=== PATIENT | female | born 1980 | race Caucasian/White ===

== ENCOUNTER 2018-04-23 04:54 | Emergency (ER) | payer MEDICAID ==
[~2018-04-23] VITALS: Ht 160 cm; Wt 82.1 kg
[2018-04-23 05:06] VITALS: BP 134/63; PULSE 94; RESP 18; Ht 160 cm; Wt 82.1 kg
[2018-04-23] MEDS ORDERED: TRAM50TA2 PO (06:58)
--- NOTE | 2018-04-23 07:02 | ERD ---
ER Documentation Chief Complaint Chief Complaint generalize body pain x 2 months HPI Patient is a 37-year-old female with no medical problems who presents with body wide pain. The patient said that she has had pain in her joints across her body for the past 2 months. She was told that she has "arthritis". She tried ibuprofen but was not getting relief. She had subjective fever as well. She has wrist and ankle pain which is the worst. She denies any falls. She said that she feels like there is inflammation. She does have a primary doctor. She does not have a supervisor enrobing as of yet. ROS All systems reviewed and are negative except as per history of present illness. Medications Home Meds Active Scripts Tramadol HCl (Tramadol HCl) 50 Mg Tablet, 50 MG PO Q6 PRN for PAIN, #10 TAB Prov:CORY MILLIGAN MD 04/23/18 Allergies Allergies: Coded Allergies: No Known Allergy (Verified , 01/09/11) PMhx/Soc Medical and Surgical Hx: pt denies Medical Hx History of Surgery: No Anesthesia Reaction: No Hx Neurological Disorder: No Hx Respiratory Disorders: No Hx Cardiac Disorders: No Hx Psychiatric Problems: No Hx Miscellaneous Medical Probl: No Hx Alcohol Use: No Hx Substance Use: No Hx Tobacco Use: No Smoking Status: Never smoker FmHx Family History: No diabetes Physical Exam Vitals Vital Signs Date Temp Pulse Resp B/P (MAP) Pulse Ox O2 O2 Flow FiO2 Time Delivery Rate 04/23/18 99.4 94 18 134/63 98 05:06 (86) Physical Exam Const: No acute distress Head: Atraumatic Eyes: Normal Conjunctiva ENT: Normal External Ears, Nose and Mouth. Neck: Full range of motion. No meningismus. Resp: Clear to auscultation bilaterally Cardio: Regular rate and rhythm, no murmurs Abd: Soft, non tender, non distended. Normal bowel sounds Skin: No petechiae or rashes Back: No midline or flank tenderness Ext: No cyanosis, or edema Neur: Awake and alert Psych: Normal Mood and Affect Procedures/MDM Patient is a 37-year-old female who presents with body wide pain. I believe she likely has underlying rheumatoid arthritis given her symptoms. The patient will be treated with a short course of tramadol for pain. I do believe that she should follow-up with a supervisor enrobing and I have given her information for Dr. Holloway. She should follow-up within the next 2-3 days. She can return for any worsening symptoms. I doubt serious bacterial infection. Vital signs are normal and she is afebrile in the emergency department. Departure Diagnosis: Primary Impression: Rheumatoid arthritis Rheumatoid arthritis location: unspecified site Rheumatoid factor presence: unspecified presence Qualified Codes: M06.9 - Rheumatoid arthritis, unspecified Additional Impression: Pain Condition: Fair Patient Instructions: What Is Rheumatoid Arthritis? Referrals: TAMELA HERRERA MD Additional Instructions: Specialist:Usted tiene nicholas condicin mdica que requiere que kassandra a un especialista dentro de los prximos 1-2 infante.POR FAVOR,CON ARSHAD SEGUIMIENTO DE PRIMARIA PHSICIAN refferal. SI USTED NO TIENE UN MDICO GENERAL Y / O USTED NO PUEDE PAGAR ryan a un mdico,los siguientes boyer RECURSOS sido suministrado a usted. ES ARSHAD RESPONSABILIDAD PARA SER VISTOS POR EL ESPECIALISTA: CORY MILLIGAN MD Apr 23, 2018 07:02
== END 2018-04-23 07:04 | disposition home or self-care (01) ==
LOC: FTE 04:54
DX: M06.9 Rheumatoid arthritis, unspecified (principal); M25.532 Pain in left wrist; M25.572 Pain in left ankle and joints of left foot; M25.571 Pain in right ankle and joints of right foot
CPT/HCPCS: 99283